=== PATIENT | female | born 1995 | race Caucasian/White ===

== ENCOUNTER → 2021-03-23 | Outpatient (CLI) | payer BC | LOC: ORTHO 09:25 | PROVIDERS: ATTEND Orthopaedic Surgery | DX: M23.92 Unspecified internal derangement of left knee (principal); Z98.890 Other specified postprocedural states | CPT/HCPCS: 99202 ==

== ENCOUNTER → 2021-03-31 | Outpatient (CLI) | payer BC, OTHER ==
--- NOTE | 2021-03-31 11:53 | Diagnostic Imaging Report ---
EXAMINATION: Magnetic resonance imaging of the left knee without intravenous contrast DATE: March 31, 2021. COMPARISON: None. INDICATION: 25-year-old female, left knee pain. Injury on March 11, 2021. TECHNIQUE: Multiplanar, multisequence non contrast enhanced MR imaging was accomplished. FINDINGS: MENISCI: The medial meniscus is intact. The lateral meniscus is intact. LIGAMENTS AND TENDONS: The patient is status post anterior cruciate ligament reconstruction. The graft does appear to be somewhat thick and irregular in morphology. The graft is intact near its tibial insertion. The graft is difficult to visualize as completely intact near its femoral attachment site. On coronal ACL sequence series 12 image 8, there does appear to be approximately 50% partial thickness of the graft being intact. The posterior cruciate ligament is intact. The medial collateral ligament is intact. The iliotibial band, mid third lateral capsular ligament, fibular collateral ligament, biceps femoris tendon and conjoined tendon are intact. The quadriceps tendon and patella ligament are intact. JOINT: The articular cartilage surfaces are intact. There is no knee joint effusion, prominent synovitis, or intra-articular body. BONE: There is edema in the region of the lateral femoral notch as well as the posterior aspect of the lateral tibial plateau. There is no identified fracture line. These are compatible with bone contusions and are commonly seen in the setting of anterior cruciate ligament injury. The additional bone marrow signal is unremarkable. BURSAE AND SOFT TISSUES: There is no Bhakta's cyst. IMPRESSION: 1. The patient is status post anterior cruciate ligament reconstruction. The graft appears thickened and irregular in appearance. The femoral attachment site is difficult to thoroughly visualize. There is suspected to be a roughly 50% partial thickness tear of the graft in its upper aspect, particularly given bone contusions the lateral femoral notch and posterior aspect of the left lateral tibial plateau which are commonly seen in the setting of anterior cruciate ligament injury. An additional consideration is a functional deficiency of the anterior cruciate ligament graft. 2. Intact medial and lateral meniscus. 3. Additional ligaments and tendons are intact. 4. Intact articular cartilage. No knee joint effusion. Dictated by: Dictated on workstation # [id number]
== END ==
LOC: RAD 07:51
PROVIDERS: ATTEND Orthopaedic Surgery
DX: M23.612 Other spontaneous disruption of anterior cruciate ligament of left knee (principal)
CPT/HCPCS: 73721